=== PATIENT | male | born 1995 ===

== ENCOUNTER 2017-05-23 17:00 | Emergency (ER) | payer MEDICAID, OTHER ==
[2017-05-23 17:00] VITALS: BMI 26.0
--- NOTE | 2017-05-23 18:14 | ED PDOC ---
HPI: Abdomen Time Seen by Provider: 05/23/17 17:25 Chief Complaint (Nursing): Abdominal Pain Chief Complaint (Provider): Suprapubic pain x 10 hours. History Per: Patient History/Exam Limitations: no limitations Onset/Duration Of Symptoms: Days Outside of [place] travel?: No Current Symptoms Are (Timing): Still Present Severity: Mild Pain Scale Rating Of: 4 Quality Of Discomfort: Cramping Associated Symptoms: Urinary Symptoms (Increased urinary frequency ) Additional Complaint(s): Pt reports being sexually active with men and women. 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 PT denies N/V/fever/chills or back pain. Past Medical History Reviewed: Historical Data, Nursing Documentation, Vital Signs Vital Signs: Last Vital Signs Temp 96.7 F L 05/23/17 17:18 Pulse 119 H 05/23/17 17:18 Resp 18 05/23/17 17:18 BP 101/49 L 05/23/17 17:18 Pulse Ox 100 05/23/17 18:14 - Medical History PMH: Anxiety, Asthma, Depression, Gastritis Denies: Chronic Kidney Disease - Surgical History Surgical History: No Surg Hx - Family History Family History: States: Unknown Family Hx - Home Medications Home Medications: Ambulatory Orders Medication Instructions Recorded RX: Omeprazole 40 mg PO DAILY 10/06/16 RX: buPROPion XL [Wellbutrin XL] 300 mg PO HS 10/06/16 Metronidazole [Flagyl] 500 mg PO Q8 #15 tablet 10/08/16 buPROPion XL [Wellbutrin XL] 300 mg PO HS 10/08/16 RX: Doxycycline Hyclate 100 mg PO BID #20 capsule 05/23/17 - Allergies Allergies/Adverse Reactions: Allergies Allergy/AdvReac Type Severity Reaction Status Date / Time No Known Allergies Allergy Verified 04/21/16 20:14 Review of Systems ROS Statement: Except As Marked, All Systems Reviewed And Found Negative Genitourinary Male: Positive for: Other (Suprapubic pain ) Physical Exam - Reviewed Nursing Documentation Reviewed: Yes Vital Signs Reviewed: Yes - Physical Exam Appears: Positive for: Well, Non-toxic, No Acute Distress Head Exam: Positive for: ATRAUMATIC, NORMAL INSPECTION, NORMOCEPHALIC Skin: Positive for: Normal Color, Warm, DRY Eye Exam: Positive for: Normal appearance ENT: Positive for: Normal ENT Inspection Neck: Positive for: Normal, Painless ROM Cardiovascular/Chest: Positive for: Regular Rate, Rhythm Respiratory: Positive for: Normal Breath Sounds. Negative for: Accessory Muscle Use, Respiratory Distress Gastrointestinal/Abdominal: Positive for: Normal Exam, Bowel Sounds, Soft. Negative for: Tenderness Back: Positive for: Normal Inspection Extremity: Positive for: Normal ROM Neurologic/Psych: Positive for: Alert, Oriented - ECG O2 Sat by Pulse Oximetry: 100 Disposition - Clinical Impression Clinical Impression: UTI (urinary tract infection) - Disposition Disposition: Routine/Home Disposition Time: 18:14 Condition: GOOD Prescriptions: RX: Doxycycline Hyclate 100 mg PO BID #20 capsule Instructions: Urinary Tract Infection in Men (ED)
[2017-05-23 19:13] VITALS: BP 130/78; PULSE 94; RESP 20; TEMP 98.6; O2SAT 99
== END 2017-05-23 19:21 | disposition home or self-care (01) ==
LOC: H.ER 17:00
DX: N39.0 Urinary tract infection, site not specified (principal); F32.9 Major depressive disorder, single episode, unspecified; F41.9 Anxiety disorder, unspecified; J45.909 Unspecified asthma, uncomplicated

== ENCOUNTER 2017-05-29 04:21 | Observation (INO) | payer SELFPAY ==
[2017-05-29 04:22] VITALS: BMI 26.0
[2017-05-29 04:31] VITALS: BP 152/84; RESP 16
[2017-05-29] MEDS ORDERED: Sodium Chloride 0.9% 1,000 ML IV STA (04:40)
--- NOTE | 2017-05-29 04:47 | ED PDOC ---
HPI: Abdomen Time Seen by Provider: 05/29/17 04:33 Chief Complaint (Nursing): GI Problem Chief Complaint (Provider): GI Problem History Per: Patient History/Exam Limitations: no limitations Onset/Duration Of Symptoms: Days (Four) Outside of [place] travel?: No Current Symptoms Are (Timing): Still Present Severity: Mild Associated Symptoms: Fever, Chills, Nausea, Vomiting, Urinary Symptoms ((+) Persistent Dysuria). denies: Diarrhea, Chest Pain Additional Complaint(s): 21 y/o male patient presenting to the ED with fever and abdominal pain. Patient states he has been experiencing symptoms for four days. And that he developed abdominal pain, nausea, vomiting and fever two days ago. Patient states other current symptoms include chills, persistent dysuria, and he denies sore throat, cough, shortness of breath, chest pain or diarrhea. He states he has taken Ibuprofen for the fever and also states that he started antibiotics for a urinary infection. His only past medical history is asthma. Past Medical History Reviewed: Historical Data, Nursing Documentation, Vital Signs Vital Signs: Last Vital Signs Temp 100.1 F H 05/29/17 06:03 Pulse 108 H 05/29/17 06:03 Resp 16 05/29/17 06:03 BP 152/84 H 05/29/17 04:26 Pulse Ox 97 05/29/17 11:07 - Medical History PMH: Anxiety, Asthma, Depression, Gastritis Denies: Chronic Kidney Disease - Family History Family History: States: Unknown Family Hx - Social History Current smoker - smoking cessation education provided: No Alcohol: None Drugs: Denies - Home Medications Home Medications: Ambulatory Orders Medication Instructions Recorded Omeprazole 40 mg PO DAILY 10/06/16 buPROPion XL [Wellbutrin XL] 300 mg PO HS 10/06/16 Metronidazole [Flagyl] 500 mg PO Q8 #15 tablet 10/08/16 buPROPion XL [Wellbutrin XL] 300 mg PO HS 10/08/16 Doxycycline Hyclate 100 mg PO BID #20 capsule 05/23/17 Polyethylene Glycol 3350 [Miralax] 1 tbs PO DAILY PRN #1 bottle 05/29/17 - Allergies Allergies/Adverse Reactions: Allergies Allergy/AdvReac Type Severity Reaction Status Date / Time No Known Allergies Allergy Verified 04/21/16 20:14 Review of Systems ROS Statement: Except As Marked, All Systems Reviewed And Found Negative Constitutional: Positive for: Chills ENT: Positive for: Throat Pain Cardiovascular: Negative for: Chest Pain Respiratory: Negative for: Cough, Shortness of Breath Gastrointestinal: Positive for: Nausea, Vomiting, Abdominal Pain. Negative for : Diarrhea Genitourinary Male: Positive for: Dysuria ((+)Persistent ) Physical Exam - Reviewed Nursing Documentation Reviewed: Yes Vital Signs Reviewed: Yes - Physical Exam Appears: Positive for: Non-toxic, Uncomfortable Head Exam: Positive for: ATRAUMATIC, NORMAL INSPECTION, NORMOCEPHALIC Skin: Positive for: Normal Color, Warm, Dry ENT: Positive for: Tonsillar Swelling ((+)Bilateral tonsillar enlargement with erythema.) Neck: Positive for: Normal, Painless ROM, Supple Cardiovascular/Chest: Positive for: Regular Rate, Rhythm. Negative for: Murmur Respiratory: Positive for: Normal Breath Sounds. Negative for: Respiratory Distress Gastrointestinal/Abdominal: Positive for: Soft ((+)Mild lower abdominal tenderness), Tenderness Extremity: Positive for: Normal ROM, Tenderness Neurologic/Psych: Positive for: Alert, Oriented. Negative for: Motor/Sensory Deficits - Laboratory Results Result Diagrams: 05/29/17 04:50 05/29/17 04:50 - ECG O2 Sat by Pulse Oximetry: 97 (RA) Pulse Ox Interpretation: Normal Medical Decision Making Medical Decision Making: Time: 044 Initial impression: Febrile Illness, recent UTI Initial plan: --EKG --CMP --LACT ACID --LIPASE --ED URINE DIPSTICK --EKG-ED --CBC --ACETAMINOPHEN --KETOROLAC --SODIUM CHLORIDE --ONDANSETRON --BLOOD CULTURE --HEPLOCK INSERTION --MONO --INFLUENZA A B --RAPID STREP GROUP --URINALYSIS 0522: Re-evaluation Patient being placed under ED-Observation for further workups, Ultrasound being performed for patients complaint of testicular pain. 0700: Patient signed out to Dr. Jay MD at this time. Pending CT and Ultrasound Results. Scribe Attestation: Documented by Linda Titus, acting as a scribe for Vish Galvan MD. Scribe Attestation: All medical record entries made by the Scribe were at my direction and personally dictated by me. I have reviewed the chart and agree that the record accurately reflects my personal performance of the history, physical exam, medical decision making, and the department course for this patient. I have also personally directed, reviewed, and agree with the discharge instructions and disposition. ED OBSERVATION Date of observation admission: 05/29/17 Time of observation admission: 05:22 - Observation admission statement Patient is being placed in observation because:: Pending further workups, CT Scan, Ultrasound for testicular pain. - Goals of Observation Goals of observation are:: Pending Results Disposition - Clinical Impression Clinical Impression: Abdominal pain - Disposition Disposition: Transfer of Care Disposition Time: 05:20 Condition: STABLE Patient Signed Over To: Candice Thompson
[2017-05-29 05:10] LABS: BASO % 0.3 % (0.0-2.0); HEMOGLOBIN 15.5 g/dL (12.0-18.0); LYMPH # 1.2 K/uL (1.0-4.3); MONO # 1.8 K/uL (0.0-0.8); PLATELET COUNT 216 K/uL (130-400)
[2017-05-29 05:15] LABS: LYMPH % 8.8 % (20.0-40.0); MEAN CELL VOLUME 87.6 fl (80.0-94.0); MEAN CORPUSCULAR HEMOGLOBIN 29.1 pg (27.0-31.0); MEAN CORPUSCULAR HGB CONC 33.2 g/dL (33.0-37.0); MEAN PLATELET VOLUME 8.1 fl (7.2-11.7); NEUT # 10.9 K/uL (1.8-7.0); NEUT % 77.9 % (50.0-75.0); RBC 5.34 Mil/uL (4.40-5.90); RED CELL DISTRIBUTION WIDTH 14.2 % (11.5-14.5)
[2017-05-29 05:18] LABS: ALB/GLOB RATIO 1.2 (1.0-2.1); ALBUMIN 4.2 g/dL (3.5-5.0); ALT/SGPT 45 U/L (21-72); AST/SGOT 28 U/L (17-59); BLOOD UREA NITROGEN 9 mg/dl (9-20); GFR AFRICAN-AMERICAN > 60; GFR NON-AFRICAN AMERICAN > 60; LIPASE 58 U/L (23-300)
[2017-05-29 05:55] LABS: URINE BACTERIA RARE (<OCC); URINE BILIRUBIN NEGATIVE (NEGATIVE); URINE BLOOD MODERATE (NEGATIVE); URINE CLARITY SLIGHTY-CLOUDY (Clear); URINE COLOR AMBER (YELLOW); URINE GLUCOSE (UA) NEG (Normal); URINE LEUKOCYTE ESTERASE NEG Leu/uL (Negative); URINE NITRATE NEGATIVE (NEGATIVE); URINE PROTEIN 30 mg/dL (NEGATIVE)
[2017-05-29 06:04] VITALS: PULSE 108; TEMP 100.1
[2017-05-29] MEDS ORDERED: Iohexol 240 (50 ml) PO ONE (06:21)
[2017-05-29 06:25] LABS: BANDS 3 % (0-2); LYMPHOCYTE 8 % (20-50); MONOCYTE 12 % (0-10); NEUTROPHIL 74 % (42-75); REACTIVE LYMPHOCYTES 3 % (0-0); TOTAL CELLS COUNTED 100
[2017-05-29 06:26] LABS: LARGE PLATELETS PRESENT; PLATELET ESTIMATE NORMAL (NORMAL); STOMATOCYTES SLIGHT; TOXIC GRANULATION PRESENT
[2017-05-29 06:33] VITALS: O2SAT 97
--- NOTE | 2017-05-29 07:36 | ED PDOC ---
- Laboratory Results Result Diagrams: 05/29/17 04:50 05/29/17 04:50 - ECG O2 Sat by Pulse Oximetry: 97 (RA) Pulse Ox Interpretation: Normal Medical Decision Making Medical Decision Making: --Patient has been signed out by Dr. Romi Galvan to the provider at 07:00, pending Abdomen/Pelvis CT and Testicular Ultrasound. Time: 08:56 Testicular US: FINDINGS: RIGHT TESTICLE: Measures 4.6 x 3.3 x 1.8 cm. Homogeneous echotexture. Blood flow is demonstrated. . RIGHT EPIDIDYMIS: Measures approximately 1.0 x 1.1 x 0.8 cm. Probable cysts measuring approximately 4 mm and 2 mm. LEFT TESTICLE: Measures 4.2 x 3.3 x 1.9 cm. Homogeneous echotexture. Blood flow is demonstrated. LEFT EPIDIDYMIS: Measures approximately 1.1 x 0.8 x 1.1 cm. Probable cyst measuring approximately 5 mm. HYDROCELE: Small right-sided hydrocele. VARICOCELE: None. OTHER FINDINGS: None. IMPRESSION: Bilateral probable epididymal cysts. Right-sided hydrocele. Time: 09:13 CT Abdomen/Pelvis: FINDINGS: LOWER THORAX: No visible consolidation, pleural effusion, or pneumothorax. LIVER: Unremarkable. GALLBLADDER AND BILE DUCTS: Unremarkable. PANCREAS: Unremarkable. SPLEEN: Unremarkable. ADRENALS: Unremarkable. KIDNEYS AND URETERS: The kidneys enhance symmetrically. No hydronephrosis or obstructing renal calculus. BLADDER: The urinary bladder appears unremarkable. REPRODUCTIVE: Unremarkable. APPENDIX: No secondary signs of acute appendicitis. The appendix is not definitively identified. BOWEL: The stomach is nondistended. The bowel loops appear within normal limits of caliber without evidence of intestinal obstruction. Moderate constipation. PERITONEUM: No significant free fluid. No definite free air. LYMPH NODES: No bulky lymphadenopathy identified. VASCULATURE: No aortic aneurysm. BONES: No acute osseous abnormality is detected. OTHER FINDINGS: None. IMPRESSION: Moderate constipation. Time: 09:50 Clinical Impression: Constipation, Hematuria Upon provider evaluation patient is medically stable, and requires no further treatment in the ED at this time. Patient will be discharged home with Rx for Miralax prn for constipation. Counseling was provided and all questions were answered regarding diagnosis and need for follow up. There is agreement to discharge plan. Return if symptoms persist or worsen. Disposition Doctor Will See Patient In The: Office Counseled Patient/Family Regarding: Studies Performed, Diagnosis, Need For Followup, Rx Given - Clinical Impression Clinical Impression: Abdominal pain - POA Present On Arrival: None - Disposition Disposition: Routine/Home Disposition Time: 09:51 Condition: STABLE
[2017-05-29] MEDS ORDERED: Iohexol 300 100 ML IJ ONE (08:05)
[2017-05-29] MEDS ORDERED: Sodium Chloride 0.9% 50 ML IV ONE (08:06)
--- NOTE | 2017-05-29 08:39 | CARD ---
APPROVED REPORT EKG Measurement Heart [id number] <Conclusion> Sinus tachycardia Biatrial enlargement Abnormal ECG
--- NOTE | 2017-05-29 08:58 | US ---
HISTORY: testicular pain TECHNIQUE: Realtime sonography through the scrotum with color and doppler flow. COMPARISON: None Available. FINDINGS: RIGHT TESTICLE: Measures 4.6 x 3.3 x 1.8 cm. Homogeneous echotexture. Blood flow is demonstrated. . RIGHT EPIDIDYMIS: Measures approximately 1.0 x 1.1 x 0.8 cm. Probable cysts measuring approximately 4 mm and 2 mm. LEFT TESTICLE: Measures 4.2 x 3.3 x 1.9 cm. Homogeneous echotexture. Blood flow is demonstrated. LEFT EPIDIDYMIS: Measures approximately 1.1 x 0.8 x 1.1 cm. Probable cyst measuring approximately 5 mm. HYDROCELE: Small right-sided hydrocele. VARICOCELE: None. OTHER FINDINGS: None. IMPRESSION: Bilateral probable epididymal cysts. Right-sided hydrocele.
--- NOTE | 2017-05-29 09:15 | CT ---
PROCEDURE: CT Abdomen and Pelvis with oral and IV contrast. HISTORY: abd pain COMPARISON: CT abdomen and pelvis with contrast performed 10/06/16 TECHNIQUE: Contiguous axial images of the abdomen and pelvis. Oral and IV contrast was administered. Coronal and Sagittal reformats generated and reviewed. Contrast dose: 95 mL Omnipaque 300 Radiation dose: Total exam DLP = 893.06 mGy-cm. This CT exam was performed using one or more of the following dose reduction techniques: Automated exposure control, adjustment of the mA and/or kV according to patient size, and/or use of iterative reconstruction technique. FINDINGS: LOWER THORAX: No visible consolidation, pleural effusion, or pneumothorax. LIVER: Unremarkable. GALLBLADDER AND BILE DUCTS: Unremarkable. PANCREAS: Unremarkable. SPLEEN: Unremarkable. ADRENALS: Unremarkable. KIDNEYS AND URETERS: The kidneys enhance symmetrically. No hydronephrosis or obstructing renal calculus. BLADDER: The urinary bladder appears unremarkable. REPRODUCTIVE: Unremarkable. APPENDIX: No secondary signs of acute appendicitis. The appendix is not definitively identified. BOWEL: The stomach is nondistended. The bowel loops appear within normal limits of caliber without evidence of intestinal obstruction. Moderate constipation. PERITONEUM: No significant free fluid. No definite free air. LYMPH NODES: No bulky lymphadenopathy identified. VASCULATURE: No aortic aneurysm. BONES: No acute osseous abnormality is detected. OTHER FINDINGS: None. IMPRESSION: Moderate constipation.
== END 2017-05-29 09:51 | disposition home or self-care (01) ==
LOC: H.ER 04:21 → H.EROBSV 05:22
PROVIDERS: ADMIT Emergency Medicine; ATTEND Emergency Medicine
DX: K59.00 Constipation, unspecified (principal); R31.9 Hematuria, unspecified; J45.909 Unspecified asthma, uncomplicated; N43.3 Hydrocele, unspecified
CPT/HCPCS: 74177; 80053; 81003; 83605; 83690; 85025; 86308; 87040; 87070; 87430; 87804; 93005; 93975; 96360; 99284; G0378; J1885; J2405; J7040; Q9966; Q9967

== ENCOUNTER 2017-06-02 17:10 | Emergency (ER) | payer SELFPAY ==
[2017-06-02 17:10] VITALS: BMI 26.0
[2017-06-02 18:03] VITALS: BP 122/68; PULSE 89; RESP 16; TEMP 98.2; O2SAT 98
--- NOTE | 2017-06-02 19:06 | ED PDOC ---
HPI: General Adult Time Seen by Provider: 06/02/17 18:32 Chief Complaint (Nursing): ENT Problem Chief Complaint (Provider): Foreign Object In ear History Per: Patient History/Exam Limitations: no limitations Onset/Duration Of Symptoms: Hrs Have you had recent travel within the past 21 days to any of the following countries: [place], [place], [place] or [place]?: No Current Symptoms Are (Timing): Still Present Additional Complaint(s): Neftaly Duval, a 21 year old male presents to the ED because he thinks he may have a foreign object in his ear. The patient states that he was using a Qtip in his ear and feels as though a piece of the cotton was left in the ear. He states that he tried using water to flush it out. The patient reports that he is here today to find out if anything foreign was left in his ear. Denies fevers, chills, throat pain, headache. Past Medical History Reviewed: Historical Data, Nursing Documentation, Vital Signs Vital Signs: Last Vital Signs Temp 98.2 F 06/02/17 18:02 Pulse 89 06/02/17 18:02 Resp 16 06/02/17 18:02 BP 122/68 06/02/17 18:02 Pulse Ox 98 06/02/17 18:02 - Medical History PMH: Anxiety, Asthma, Depression, Gastritis Denies: Chronic Kidney Disease - Family History Family History: States: Unknown Family Hx - Home Medications Home Medications: Ambulatory Orders Medication Instructions Recorded Omeprazole 40 mg PO DAILY 10/06/16 buPROPion XL [Wellbutrin XL] 300 mg PO HS 10/06/16 Metronidazole [Flagyl] 500 mg PO Q8 #15 tablet 10/08/16 buPROPion XL [Wellbutrin XL] 300 mg PO HS 10/08/16 Doxycycline Hyclate 100 mg PO BID #20 capsule 05/23/17 Polyethylene Glycol 3350 [Miralax] 1 tbs PO DAILY PRN #1 bottle 05/29/17 - Allergies Allergies/Adverse Reactions: Allergies Allergy/AdvReac Type Severity Reaction Status Date / Time No Known Allergies Allergy Verified 04/21/16 20:14 Review of Systems Constitutional: Negative for: Fever, Chills ENT: Positive for: Ear Pain (Foreign object in left ear.). Negative for: Throat Pain Neurological: Negative for: Headache Physical Exam - Reviewed Nursing Documentation Reviewed: Yes Vital Signs Reviewed: Yes - Physical Exam Appears: Positive for: Non-toxic, No Acute Distress ENT: Positive for: Normal ENT Inspection (No foreign object noted in ear bilaterally; No lymphadenopathy.) Neurologic/Psych: Positive for: Alert, Oriented, Gait - ECG O2 Sat by Pulse Oximetry: 98 (RA) Pulse Ox Interpretation: Normal Medical Decision Making Medical Decision Makin Initial Impression: 21 year old male presenting with ear pain Patient will be given medication to help with ear pain. Patient was also advised to follow up with ENT if pain persists. Scribe Attestation Documented by Myra Higginbotham acting as a scribe for Una Patino PA-C. Scribe Attestation All medical record entries made by the Scribe were at my direction and personally dictated by me. I have reviewed the chart and agree that the record accurately reflects my personal performance of the history, physical exam, medical decision making, and the department course for this patient. I have also personally directed, reviewed, and agree with the discharge instructions and disposition.
== END 2017-06-02 19:00 | disposition home or self-care (01) ==
LOC: H.ER 17:10
DX: H92.09 Otalgia, unspecified ear (principal)

== ENCOUNTER 2017-10-05 02:55 | Emergency (ER) | payer SELFPAY ==
[2017-10-05 02:55] VITALS: BMI 26.0
[2017-10-05 03:24] VITALS: BP 141/77; RESP 21; O2SAT 96
--- NOTE | 2017-10-05 05:20 | ED PDOC ---
HPI: General Adult Time Seen by Provider: 10/05/17 03:00 Chief Complaint (Nursing): ENT Problem Chief Complaint (Provider): Flu Symptoms History Per: Patient History/Exam Limitations: no limitations Onset/Duration Of Symptoms: Days (x3) Have you had recent travel within the past 21 days to any of the following countries: [place], [place], [place] or [place]?: No Current Symptoms Are (Timing): Still Present Additional Complaint(s): 22 year old male presents to ED with complaints of flu-like symptoms x3 days and has a past medical history of asthma. (+) fever, cough, and sore throat. (- ) vomiting or diarrhea. Patient believes sore throat is secondary to smoking Hookah a few days prior. PCP: None Past Medical History Reviewed: Historical Data, Nursing Documentation, Vital Signs Vital Signs: Last Vital Signs Temp 99.5 F 10/05/17 06:16 Pulse 96 H 10/05/17 06:16 Resp 21 10/05/17 03:22 BP 141/77 10/05/17 03:22 Pulse Ox 96 10/19/17 13:05 - Medical History PMH: Anxiety, Asthma, Depression, Gastritis Denies: Chronic Kidney Disease - Surgical History Surgical History: No Surg Hx - Family History Family History: States: Unknown Family Hx - Social History Current smoker - smoking cessation education provided: Yes Ex-Smoker (has not smoked in the last 12 months): No Alcohol: Occasional Drugs: Cannabis - Home Medications Home Medications: Ambulatory Orders Medication Instructions Recorded Omeprazole 40 mg PO DAILY 10/06/16 buPROPion XL [Wellbutrin XL] 300 mg PO HS 10/06/16 Metronidazole [Flagyl] 500 mg PO Q8 #15 tablet 10/08/16 buPROPion XL [Wellbutrin XL] 300 mg PO HS 10/08/16 Doxycycline Hyclate 100 mg PO BID #20 capsule 05/23/17 Polyethylene Glycol 3350 [Miralax] 1 tbs PO DAILY PRN #1 bottle 05/29/17 Non-Formulary 1 ea XX DAILY #1 ea 06/02/17 Oseltamivir Phosphate [Tamiflu] 75 mg PO BID #10 capsule 10/05/17 - Allergies Allergies/Adverse Reactions: Allergies Allergy/AdvReac Type Severity Reaction Status Date / Time No Known Allergies Allergy Verified 10/05/17 03:24 Review of Systems ROS Statement: Except As Marked, All Systems Reviewed And Found Negative Constitutional: Positive for: Fever ENT: Positive for: Throat Pain Respiratory: Positive for: Cough Gastrointestinal: Negative for: Vomiting, Diarrhea Physical Exam - Reviewed Nursing Documentation Reviewed: Yes Vital Signs Reviewed: Yes - Physical Exam Appears: Positive for: Non-toxic, No Acute Distress Head Exam: Positive for: ATRAUMATIC, NORMOCEPHALIC Skin: Positive for: Normal Color, Warm, Dry Eye Exam: Positive for: EOMI, Normal appearance, PERRL ENT: Positive for: Tonsillar Swelling (mild) Neck: Positive for: Normal, Painless ROM, Supple Cardiovascular/Chest: Positive for: Regular Rate, Rhythm Respiratory: Positive for: Normal Breath Sounds. Negative for: Respiratory Distress Gastrointestinal/Abdominal: Positive for: Normal Exam, Soft. Negative for: Tenderness Back: Positive for: Normal Inspection Extremity: Positive for: Normal ROM. Negative for: Deformity Neurologic/Psych: Positive for: Alert, Oriented. Negative for: Motor/Sensory Deficits - ECG O2 Sat by Pulse Oximetry: 96 (RA) Pulse Ox Interpretation: Normal Medical Decision Making Medical Decision Makin Initial impression: fever cough rule out flu Initial plan: * Toradol 50mg IM * Influenza A B * Rapid strep * Re-eval 0515 Flu test is positive. Patient is stable for discharge and was given Tylenol and Tamiflu prior to discharge. Scribe Attestation: Documented by Ning Madera acting as a scribe for Jose E Anand MD. Scribe Attestation: All medical record entries made by the Scribe were at my direction and personally dictated by me. I have reviewed the chart and agree that the record accurately reflects my personal performance of the history, physical exam, medical decision making, and the department course for this patient. I have also personally directed, reviewed, and agree with the discharge instructions and disposition. Disposition - Clinical Impression Clinical Impression: Influenza - Patient ED Disposition Is Patient to be Admitted: No Counseled Patient/Family Regarding: Studies Performed, Diagnosis, Need For Followup - Disposition Referrals: [facility] [Outside] [facility] [Outside] Disposition: Routine/Home Disposition Time: 05:00 Condition: IMPROVED Additional Instructions: follow up with your primary doctor in 1-2 days return to the ED with any worsening or concerning symptoms. Prescriptions: Oseltamivir Phosphate [Tamiflu] 75 mg PO BID #10 capsule Instructions: Influenza (ED) Forms: [facility] (Yakut), [facility] ED School/Work Excuse
[2017-10-05 06:16] VITALS: PULSE 96; TEMP 99.5
== END 2017-10-05 06:24 | disposition home or self-care (01) ==
LOC: H.ER 02:55
DX: J11.1 Influenza due to unidentified influenza virus with other respiratory manifestations (principal); F17.200 Nicotine dependence, unspecified, uncomplicated; Z86.59 Personal history of other mental and behavioral disorders; J45.909 Unspecified asthma, uncomplicated
CPT/HCPCS: 87070; 87430; 87804; 96372; 99282; J1885